=== PATIENT | male | born 1960 | race Two or more races ===

== ENCOUNTER 2020-05-09 19:07 | Emergency (ER) | payer OTHER ==
[~2020-05-09] VITALS: Ht 167.6 cm; Wt 70.0 kg
[2020-05-09] MEDS ORDERED: IV NORMAL SALINE 1000ML BAG 1,000 ML IV ONE ×2 (19:30)
[2020-05-09 19:45] LABS: BASO # 0.1 x10^3/uL (0.0-0.2); BASO % 1 % (0-3); EOS # 0.3 x10^3/uL (0.0-0.7); EOS % 3 % (0-3); LYMPH # 1.5 x10^3/uL (1.0-4.8); LYMPH % 15 % (24-48); MEAN CORPUSCULAR HEMOGLOBIN 31 pg (25-35); MEAN CORPUSCULAR HGB CONC 33 g/dL (31-37); MEAN CORPUSCULAR VOLUME 93 fL (79-100); MONO # 0.3 x10^3/uL (0.0-1.1); MONO % 3 % (0-9); NEUT # 7.9 x10^3/uL (1.8-7.7); NEUT % 78 % (31-73); PLATELET COUNT 213 x10^3/uL (140-400); RED BLOOD COUNT 2.17 x10^6/uL (4.30-5.70); RED CELL DISTRIBUTION WIDTH 16.5 % (11.5-14.5); WHITE BLOOD COUNT 10.1 x10^3/uL (4.0-11.0)
[2020-05-09] MEDS ORDERED: GELATIN SPONGE SIZE 12-7MM SPONGE. ONE ×2 (19:47→22:00)
[2020-05-09 19:49] LABS: HEMATOCRIT 20.2 % (39.0-53.0); HEMOGLOBIN 6.7 g/dL (13.0-17.5)
[2020-05-09] MEDS ORDERED: SURGICEL FIBRILLAR 1X2 EACH. ONE ×3 (19:54→19:55)
[2020-05-09] MEDS ORDERED: SURGICEL HEMOSTAT 4X8 EACH. ONE ×3 (20:02)
[2020-05-09 20:03] LABS: ALBUMIN 1.7 g/dL (3.4-5.0); ALBUMIN/GLOBULIN RATIO 0.5 (1.0-1.7); CALCIUM 7.6 mg/dL (8.5-10.1); CREATININE 0.9 mg/dL (0.7-1.3); TOTAL BILIRUBIN 0.3 mg/dL (0.2-1.0); TOTAL PROTEIN 5.3 g/dL (6.4-8.2)
[2020-05-09 20:09] LABS: POTASSIUM 2.8 mmol/L (3.5-5.1)
--- NOTE | 2020-05-09 20:17 | RAD ---
XR CHEST 1V History: Reason: ptx. bleeding around trach / Spl. Instructions: / History: Comparison: None. Findings: Diffuse interstitial and alveolar opacities. Tracheostomy tube with tip in the mid trachea. Right PIC C with tip projecting over the cavoatrial junction. No pleural effusion. No pneumothorax. Postoperati ve changes right proximal humerus. Enteric tube with tip below the diaphragm beyond the image. Impression: 1. Diffuse interstitial and alveolar opacities, may represent pulmonary edema or infection including viral pneumonia. Electronically signed by: Navi Zamora DO (05/09/2020 8:14 PM) [facility]
--- NOTE | 2020-05-09 20:34 | ED.ADGEN ---
General Adult EDM: Chief Complaint: OTHER COMPLAINTS HPI: HPI: Patient is a 59 year old male coming in via EMS from nursing facility for tracheostomy bleed. Respiratory therapist accompanied patient says about 5 PM he started coughing up blood and having bleeding from around his trach. Patient has had a tracheostomy for about 2 to 3 weeks. Placed after complications due to Covid. Respiratory therapist from facility states that he had a small amount of bleeding that was cauterized with silver nitrate about 10 days ago. Has not had bleeding since then. Is on any anticoagulation. For therapy states he has been coughing up very large clots of blood and bright red blood. Review of Systems: Review of Systems: Unable to obtain due to tracheostomy and acuity of condition Current Medications: Current Medications Medications (Trade) Dose Ordered Sig/Cristhian Start Time Stop Time Status Last Admin Dose Admin Cellulose (Surgicel Fibrillar 1x2) 1 each STK-MED ONCE 05/09/20 19:55 05/09/20 19:55 DC Cellulose (Surgicel Hemostat 4x8) 5 each 1X ONCE 05/09/20 21:45 05/09/20 21:46 DC Etomidate (Amidate) 20 mg STK-MED ONCE 05/09/20 23:14 05/09/20 23:15 DC Gelatin (Gelfoam Size 12-7mm) 1 each STK-MED ONCE 05/09/20 19:47 05/09/20 19:47 DC Info (CONTRAST GIVEN -- Rx MONITORING) 1 each PRN DAILY PRN 05/09/20 21:30 05/11/20 21:29 Iohexol (Omnipaque 350 Mg/ml) 100 ml 1X ONCE 05/09/20 21:30 05/09/20 21:31 DC 05/09/20 21:34 100 ML Lorazepam (Ativan Inj) 0.5 mg 1X ONCE 05/09/20 21:30 05/09/20 21:34 DC Midazolam HCl (Versed) 5 mg STK-MED ONCE 05/09/20 23:14 05/09/20 23:15 DC Ondansetron HCl (Zofran) 4 mg 1X ONCE 05/09/20 21:15 05/09/20 21:20 DC Sodium Chloride 1,000 ml @ 1,000 mls/hr 1X ONCE 05/09/20 19:30 05/09/20 21:20 DC 05/09/20 19:09 1,000 MLS/HR Succinylcholine Chloride (Anectine) 200 mg STK-MED ONCE 05/09/20 23:14 05/09/20 23:15 DC Allergies: Allergies: Allergies Coded Allergies Type Severity Reaction Last Updated Verified No Known Drug Allergies 05/10/20 No Physical Exam: PE: Constitutional: Well developed, pale, diaphoretic [] HENT: Normocephalic, atraumatic, bilateral external ears normal, nose normal, blood in oropharynx, coughing up blood.. [] Eyes: PERRLA, conjunctiva normal, no discharge. [] Neck: Tracheostomy in place with bloody towels around it. [] Cardiovascular: Regular rate and rhythm, brisk cap refill, tachycardic [] Lungs & Thorax: Symmetric chest expansion, chest tube that is dislodged under Band-Aid, bilateral coarse breath sounds [] Abdomen: Soft, nondistended, PEG tube in place. Skin: Warm, dry, no erythema, no rash. [] Extremities: No deformities, range of motion grossly intact, no lower extremity edema [] Neurologic: Alert and oriented X 3, no focal deficits noted. [] Psychologic: Affect normal, judgement normal, mood normal. [] Current Patient Data: Labs: Laboratory Tests Test 05/09/20 19:19 05/09/20 19:30 SARS-CoV-2 Antigen (Rapid) Negative (NEGATIVE) White Blood Count 10.1 x10^3/uL (4.0-11.0) Red Blood Count 2.17 x10^6/uL (4.30-5.70) L Hemoglobin 6.7 g/dL (13.0-17.5) *L Hematocrit 20.2 % (39.0-53.0) *L Mean Corpuscular Volume 93 fL (79-100) Mean Corpuscular Hemoglobin 31 pg (25-35) Mean Corpuscular Hemoglobin Concent 33 g/dL (31-37) Red Cell Distribution Width 16.5 % (11.5-14.5) H Platelet Count 213 x10^3/uL (140-400) Neutrophils (%) (Auto) 78 % (31-73) H Lymphocytes (%) (Auto) 15 % (24-48) L Monocytes (%) (Auto) 3 % (0-9) Eosinophils (%) (Auto) 3 % (0-3) Basophils (%) (Auto) 1 % (0-3) Neutrophils # (Auto) 7.9 x10^3/uL (1.8-7.7) H Lymphocytes # (Auto) 1.5 x10^3/uL (1.0-4.8) Monocytes # (Auto) 0.3 x10^3/uL (0.0-1.1) Eosinophils # (Auto) 0.3 x10^3/uL (0.0-0.7) Basophils # (Auto) 0.1 x10^3/uL (0.0-0.2) Sodium Level 146 mmol/L (136-145) H Potassium Level 2.8 mmol/L (3.5-5.1) *L Chloride Level 108 mmol/L (98-107) H Carbon Dioxide Level 29 mmol/L (21-32) Anion Gap 9 (6-14) Blood Urea Nitrogen 24 mg/dL (8-26) Creatinine 0.9 mg/dL (0.7-1.3) Estimated GFR (Cockcroft-Gault) 87.0 BUN/Creatinine Ratio 27 (6-20) H Glucose Level 137 mg/dL (70-99) H Calcium Level 7.6 mg/dL (8.5-10.1) L Total Bilirubin 0.3 mg/dL (0.2-1.0) Aspartate Amino Transferase (AST) 13 U/L (15-37) L Alanine Aminotransferase (ALT) 18 U/L (16-63) Alkaline Phosphatase 57 U/L (46-116) Total Protein 5.3 g/dL (6.4-8.2) L Albumin 1.7 g/dL (3.4-5.0) L Albumin/Globulin Ratio 0.5 (1.0-1.7) L Laboratory Tests 05/09/20 19:30 Laboratory Tests 05/09/20 19:30 Vital Signs: Vital Signs Date Time Temp Pulse Resp B/P (MAP) Pulse Ox O2 Delivery O2 Flow Rate FiO2 05/09/20 21:19 96 133/83 (100) 100 Ventilator 05/09/20 20:14 15.0 05/09/20 19:07 12 EKG: EKG: [] Heart Score: Risk Factors: Risk Factors: DM, Current or recent (<one month) smoker, HTN, HLP, family history of CAD, obesity. Risk Scores: Score 0 - 3: 2.5% MACE over next 6 weeks - Discharge Home Score 4 - 6: 20.3% MACE over next 6 weeks - Admit for Clinical Observation Score 7 - 10: 72.7% MACE over next 6 weeks - Early Invasive Strategies Radiology/Procedures: Radiology/Procedures: XR CHEST 1V History: Reason: ptx. bleeding around trach / Spl. Instructions: / History: Comparison: None. Findings: Diffuse interstitial and alveolar opacities. Tracheostomy tube with tip in the mid trachea. Right PICC with tip projecting over the cavoatrial junction. No pleural effusion. No pneumothorax. Postoperative changes right proximal humerus. Enteric tube with tip below the diaphragm beyond the image. Impression: 1. Diffuse interstitial and alveolar opacities, may represent pulmonary edema or infection including viral pneumonia. [] Course & Med Decision Making: Course & Med Decision Making Pertinent Labs and Imaging studies reviewed. (See chart for details) Consulted surgery, Dr. Harris came in and bronched patient. There is no bleeding below the cuff of the tracheostomy site. Mass transfusion protocol ordered. Noted that patient's previous hemoglobin was 8.9. Consulted ENT but there is no ENT physician space systems operations craftsman for us at this time Total critical care time: 70 The time involved in the performance of separately reportable/billable procedures was not counted toward critical care time. Due to a high probability of clinically significant, life-threatening deterioration the patient required a high level of care to intervene emergently and I personally spent this critical time directly and personally managing the patient. The critical care time included obtaining a history, examination of the patient, assessment of vital signs, ordering and review of studies, arranging urgent treatment with development of a management plan, evaluation of patient's response to treatment, frequent reassessment, and discussions with other providers and/or family members. Patient started bleeding again while waiting for CT results, had been stable after blood wound packing. Contact Dr. Melendez who is still in the building and agrees to leave packing the Surgicel. Contacted [facility] emergency department, Dr. Ochoa will accept patient. Patient had second episode of bright red spontaneous bleeding from his trach site with increased airway bleeding. Dr. Morrow placed [id number] sutures with good hemostatic control bleeding. Patient was difficult to bag and suctioning blood clots out of trachea. Attempted intubation by STONECUTTER was unsuccessful due to massive burden of blood clots in upper airway. Suctioning bagging was easier and attempts at laryngoscopy stopped. Patient has stable vital signs and no external bleeding from trach on emergent transfer to [place] emergency department [] Dragon Disclaimer: Dragon Disclaimer: This electronic medical record was generated, in whole or in part, using a voice recognition dictation system. Departure Departure Impression: Primary Impression: Tracheal hemorrhage Additional Impression: Hemorrhage due to tracheostomy Disposition: 02 DC/TRF OTHER SHORT TERM HOS Condition: CRITICAL Referrals: NOEMI LEMON MD (PCP) Problem Qualifiers SAGE MARTÍNEZ MD May 09, 2020 20:34
[2020-05-09] MEDS ORDERED: ONDANSETRON PF 4 MG/2 ML VIAL. IVP ONE (21:15)
[2020-05-09 21:19] VITALS: BP 133/83
[2020-05-09] MEDS ORDERED: CONTRAST GIVEN. MC PRN (21:30)
[2020-05-09] MEDS ORDERED: IOHEXOL 350 MG/ML 100 ML VIAL. IV ONE (21:30)
[2020-05-09] MEDS ORDERED: SURGICEL HEMOSTAT 4X8 EACH. TP ONE (21:45)
--- NOTE | 2020-05-09 21:54 | RAD ---
CTA of the neck with contrast 05/09/2020 CLINICAL HISTORY: Bleeding from tracheostomy TECHNIQUE: After the intravenous administration of 100 cc of Omnipaque 350, contiguous, 0.625 mm axia l sections were obtained through the upper chest and neck. Multiplanar 3-D MIP and volume rendered 3- D reconstructed images were obtained. One or more of the following individualized dose reduction techniques were utilized for this study: 1. Automated exposure control. 2. Adjustment of the mA and/or kV according to patient size. 3. Use of iterative reconstruction technique. Findings: Some of the images are degraded by patient motion. The origins of the brachiocephalic, left common carotid and left subclavian arteries from the thoraci c aortic arch are patent. The origin of the right common carotid artery and both vertebral arteries a re patent. The common carotid arteries, carotid bifurcations and internal carotid arteries within the neck are w ithin normal limits. No area of stenosis or occlusion is seen. The vertebral arteries are codominant. Both vertebral arteries demonstrate normal antegrade flow. No area stenosis or occlusion is seen. A NG tube is noted in place. A tracheostomy tube is seen with its tip extending to the trachea. Subcutaneous emphysema is seen within the soft tissues inferior to the tracheostomy no abnormal fluid collection is seen. No hematoma is noted. No area of abnormal contras t enhancement active extravasation of contrast is seen. Poorly defined debris is seen distending the inferior hypopharynx and larynx superior to the tracheostomy.Degenerative changes are seen involving the uncovertebral and facet joints throughout the cervical disc spaces. Impression: 1. No area of stenosis or occlusion is seen. 2. Tracheostomy tube is noted in place. No hematoma or abnormal fluid collection is seen. No active e xtravasation of contrast is noted. Electronically signed by: Manjinder Conner MD (05/09/2020 9:51 PM) [id number]
--- NOTE | 2020-05-09 22:00 | RAD ---
CT scan of the chest with contrast 05/09/2020 CLINICAL HISTORY: Bleeding around tracheostomy. TECHNIQUE: After the intravenous administration of 100 cc of Omnipaque 350, contiguous, 2 mm axial se ctions were obtained through the chest and upper abdomen. One or more of the following individualized dose reduction techniques were utilized for this study: 1. Automated exposure control. 2. Adjustment of the mA and/or kV according to patient size. 3. Use of iterative reconstruction technique. FINDINGS: Images from the study are degraded by patient motion. A tracheostomy tube is seen with its tip extending to the trachea 3.5 cm superior to the alanna. A ri ght arm PICC is seen with its tip extending to the superior vena cava. An NG tube extends into the cruz dy the stomach. The heart is mildly enlarged. Thoracic aorta is tortuous but tapers normally. Promine nt mediastinal lymph nodes are seen which measure 1 to 1.8 cm in size. Bilateral perihilar infiltrates are seen. Bullous emphysematous changes are seen scattered throughout both lungs. Mild bronchiectasis is seen. No pneumothorax or pleural effusion is noted. Images through the upper abdomen are within normal limits. Degenerative changes are seen involving th e thoracic spine. IMPRESSION: 1. Tracheostomy tube is noted in place. 2. Bilateral perihilar infiltrates. Electronically signed by: Manjinder Conner MD (05/09/2020 9:58 PM) [id number]
--- NOTE | 2020-05-09 22:28 | PDOC2 ---
CONSULT Date of Consult Date of Consult DATE: 05/09/20 TIME: 22:22 Reason for Consult Reason for Consult: Tracheostomy bleeding Referring Physician Referring Physician: Dr. Henry Identification/Chief Complaint Chief Complaint none Source Source: Chart review History of Present Illness Reason for Visit: 59 yo M [facility], recovering from covid. Noted to have extensive bleeding from tracheostomy. NGT placed with bleeding. Pt awake and interactive, but unable to provide history. Past Medical History Pulmonary: Pneumonia, Other (covid) Past Surgical History Past Surgical History: Other (trach and PEG) Family History Family History: Family History Unknown Current Problem List Problem List Problems Medical Problems: (1) Hemorrhage due to tracheostomy Status: Acute (2) Tracheal hemorrhage Status: Acute Current Medications Current Medications Current Medications Sodium Chloride 1,000 ml @ 1,000 mls/hr 1X ONCE IV ; Start 05/09/20 at 19:30; Stop 05/09/20 at 21:20; Status DC Sodium Chloride 1,000 ml @ 1,000 mls/hr 1X ONCE IV ; Start 05/09/20 at 19:30; Stop 05/09/20 at 21:20; Status DC Gelatin (Gelfoam Size 12-7mm) 1 each STK-MED ONCE .ROUTE ; Start 05/09/20 at 19:47; Stop 05/09/20 at 19:47; Status DC Cellulose (Surgicel Fibrillar 1x2) 1 each STK-MED ONCE .ROUTE ; Start 05/09/20 at 19:54; Stop 05/09/20 at 19:55; Status DC Cellulose (Surgicel Fibrillar 1x2) 1 each STK-MED ONCE .ROUTE ; Start 05/09/20 at 19:55; Stop 05/09/20 at 19:55; Status DC Cellulose (Surgicel Fibrillar 1x2) 1 each STK-MED ONCE .ROUTE ; Start 05/09/20 at 19:55; Stop 05/09/20 at 19:55; Status DC Ondansetron HCl (Zofran) 4 mg 1X ONCE IVP ; Start 05/09/20 at 21:15; Stop 05/09/20 at 21:20; Status DC Cellulose (Surgicel Hemostat 4x8) 1 each STK-MED ONCE .ROUTE ; Start 05/09/20 at 20:02; Stop 05/09/20 at 20:02; Status DC Cellulose (Surgicel Hemostat 4x8) 1 each STK-MED ONCE .ROUTE ; Start 05/09/20 at 20:02; Stop 05/09/20 at 20:02; Status DC Cellulose (Surgicel Hemostat 4x8) 1 each STK-MED ONCE .ROUTE ; Start 05/09/20 at 20:02; Stop 05/09/20 at 20:03; Status DC Iohexol (Omnipaque 350 Mg/ml) 100 ml 1X ONCE IV Last administered on 05/09/20at 21:34; Start 05/09/20 at 21:30; Stop 05/09/20 at 21:31; Status DC Info (CONTRAST GIVEN -- Rx MONITORING) 1 each PRN DAILY PRN MC SEE COMMENTS; Start 05/09/20 at 21:30; Stop 05/11/20 at 21:29 Lorazepam (Ativan Inj) 0.5 mg 1X ONCE IVP ; Start 05/09/20 at 21:30; Stop 05/09/20 at 21:34; Status DC Cellulose (Surgicel Hemostat 4x8) 5 each 1X ONCE TP ; Start 05/09/20 at 21:45; Stop 05/09/20 at 21:46; Status DC Allergies Allergies: Coded Allergies: Unable to Assess (Unverified , 05/09/20) ROS Review of System unobtainable Physical Exam General: Alert, severe distress HEENT: Atraumatic, Other (tracheostomy in place with bleeding around) Abdomen: Soft, No tenderness, Other (PEG in place) Extremities: No clubbing, No cyanosis Vitals VITALS Vital Signs Date Time Temp Pulse Resp B/P (MAP) Pulse Ox O2 Delivery O2 Flow Rate FiO2 05/09/20 19:40 102 115/69 (84) 100 Bag Valve Mask 15.0 05/09/20 19:07 12 Labs Labs Laboratory Tests Test 05/09/20 19:19 05/09/20 19:30 SARS-CoV-2 Antigen (Rapid) Negative (NEGATIVE) White Blood Count 10.1 x10^3/uL (4.0-11.0) Red Blood Count 2.17 x10^6/uL (4.30-5.70) Hemoglobin 6.7 g/dL (13.0-17.5) Hematocrit 20.2 % (39.0-53.0) Mean Corpuscular Volume 93 fL (79-100) Mean Corpuscular Hemoglobin 31 pg (25-35) Mean Corpuscular Hemoglobin Concent 33 g/dL (31-37) Red Cell Distribution Width 16.5 % (11.5-14.5) Platelet Count 213 x10^3/uL (140-400) Neutrophils (%) (Auto) 78 % (31-73) Lymphocytes (%) (Auto) 15 % (24-48) Monocytes (%) (Auto) 3 % (0-9) Eosinophils (%) (Auto) 3 % (0-3) Basophils (%) (Auto) 1 % (0-3) Neutrophils # (Auto) 7.9 x10^3/uL (1.8-7.7) Lymphocytes # (Auto) 1.5 x10^3/uL (1.0-4.8) Monocytes # (Auto) 0.3 x10^3/uL (0.0-1.1) Eosinophils # (Auto) 0.3 x10^3/uL (0.0-0.7) Basophils # (Auto) 0.1 x10^3/uL (0.0-0.2) Sodium Level 146 mmol/L (136-145) Potassium Level 2.8 mmol/L (3.5-5.1) Chloride Level 108 mmol/L (98-107) Carbon Dioxide Level 29 mmol/L (21-32) Anion Gap 9 (6-14) Blood Urea Nitrogen 24 mg/dL (8-26) Creatinine 0.9 mg/dL (0.7-1.3) Estimated GFR (Cockcroft-Gault) 87.0 BUN/Creatinine Ratio 27 (6-20) Glucose Level 137 mg/dL (70-99) Calcium Level 7.6 mg/dL (8.5-10.1) Total Bilirubin 0.3 mg/dL (0.2-1.0) Aspartate Amino Transf (AST/SGOT) 13 U/L (15-37) Alanine Aminotransferase (ALT/SGPT) 18 U/L (16-63) Alkaline Phosphatase 57 U/L (46-116) Total Protein 5.3 g/dL (6.4-8.2) Albumin 1.7 g/dL (3.4-5.0) Albumin/Globulin Ratio 0.5 (1.0-1.7) Laboratory Tests Test 05/09/20 19:19 05/09/20 19:30 SARS-CoV-2 Antigen (Rapid) Negative (NEGATIVE) White Blood Count 10.1 x10^3/uL (4.0-11.0) Red Blood Count 2.17 x10^6/uL (4.30-5.70) Hemoglobin 6.7 g/dL (13.0-17.5) Hematocrit 20.2 % (39.0-53.0) Mean Corpuscular Volume 93 fL (79-100) Mean Corpuscular Hemoglobin 31 pg (25-35) Mean Corpuscular Hemoglobin Concent 33 g/dL (31-37) Red Cell Distribution Width 16.5 % (11.5-14.5) Platelet Count 213 x10^3/uL (140-400) Neutrophils (%) (Auto) 78 % (31-73) Lymphocytes (%) (Auto) 15 % (24-48) Monocytes (%) (Auto) 3 % (0-9) Eosinophils (%) (Auto) 3 % (0-3) Basophils (%) (Auto) 1 % (0-3) Neutrophils # (Auto) 7.9 x10^3/uL (1.8-7.7) Lymphocytes # (Auto) 1.5 x10^3/uL (1.0-4.8) Monocytes # (Auto) 0.3 x10^3/uL (0.0-1.1) Eosinophils # (Auto) 0.3 x10^3/uL (0.0-0.7) Basophils # (Auto) 0.1 x10^3/uL (0.0-0.2) Sodium Level 146 mmol/L (136-145) Potassium Level 2.8 mmol/L (3.5-5.1) Chloride Level 108 mmol/L (98-107) Carbon Dioxide Level 29 mmol/L (21-32) Anion Gap 9 (6-14) Blood Urea Nitrogen 24 mg/dL (8-26) Creatinine 0.9 mg/dL (0.7-1.3) Estimated GFR (Cockcroft-Gault) 87.0 BUN/Creatinine Ratio 27 (6-20) Glucose Level 137 mg/dL (70-99) Calcium Level 7.6 mg/dL (8.5-10.1) Total Bilirubin 0.3 mg/dL (0.2-1.0) Aspartate Amino Transf (AST/SGOT) 13 U/L (15-37) Alanine Aminotransferase (ALT/SGPT) 18 U/L (16-63) Alkaline Phosphatase 57 U/L (46-116) Total Protein 5.3 g/dL (6.4-8.2) Albumin 1.7 g/dL (3.4-5.0) Albumin/Globulin Ratio 0.5 (1.0-1.7) Images Images CXR-no PTX CTA chest no obvious bleeding site. Assessment/Plan Assessment/Plan Tracheostomy site bleeding wound packed with surgicel bronchoscopy performed via tracheostomy with proper positioning and no obvious blood. Continued bleeding-wound explored and appeared to have extensive bleeding from superior right site of skin. Multiple figure 8 sutures placed with 3 0 prolene. This appeared to control bleeding. Pt to be urgently transferred to [facility], as pt previously treated there and to have ENT coverage. Thanks for consult! FAYE BLUM MD May 09, 2020 22:28
[2020-05-09] MEDS ORDERED: SUCCINYLCHOLINE 200 MG/10 ML VIAL. ONE (23:14)
[2020-05-09] MEDS ORDERED: ETOMIDATE 20 MG/10 ML VIAL. IV ONE (23:14)
[2020-05-09] MEDS ORDERED: MIDAZOLAM HCL/PF 5 MG/5 ML VIAL. ONE (23:14)
== END 2020-05-09 22:25 | disposition short-term general hospital (02) ==
LOC: ER 19:07
DX: J95.03 Malfunction of tracheostomy stoma (principal); R04.2 Hemoptysis; Z20.822 Contact with and (suspected) exposure to COVID-19; Y83.8 Other surgical procedures as the cause of abnormal reaction of the patient, or of later complication, without mention of misadventure at the time of the procedure; Y92.89 Other specified places as the place of occurrence of the external cause
CPT/HCPCS: 31622; 36415; 36430; 70498; 71045; 71260; 80053; 85025; 85610; 86850; 86900; 86901; 86920; 86927; 87426; 96360; 99291; C9803; J7030; P9016; P9017; P9035; Q9967; U0003; 94002; 99285-25